=== PATIENT | male | born 1995 | race Caucasian/White ===

== ENCOUNTER 2017-10-28 14:39 | Emergency (ER) | payer OTHER ==
[2017-10-28 14:43] VITALS: BP 111/56; PULSE 82; TEMP 97.8; BMI 23.3
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
== END 2017-10-28 15:40 | disposition home or self-care (01) ==
LOC: JERFT 14:39
PROC: 0CQ1XZZ Repair Lower Lip, External Approach (ICD-10-PCS; principal; 2017-10-28)
DX: S01.511A Laceration without foreign body of lip, initial encounter (principal); W50.0XXA Accidental hit or strike by another person, initial encounter; Y93.89 Activity, other specified; Y92.89 Other specified places as the place of occurrence of the external cause; Y99.8 Other external cause status
CPT/HCPCS: 99281-25

== ENCOUNTER 2022-05-12 11:48 | Emergency (ER) | payer OTHER ==
[2022-05-12 11:55] VITALS: TEMP 98.1; BMI 28.0
[2022-05-12] MEDS ORDERED: ACETAMINOPHEN 1000 MG/100 ML BAG IVPB ONE (12:24)
[2022-05-12] MEDS ORDERED: ACETAMINOPHEN INJECTION 100 ML IVPB ONE (12:41)
[2022-05-12 13:37] LABS: BASO % 0.7 % (0-2.0); EOS % 0.7 % (0-4.5); HEMATOCRIT 45.3 % (35.4-49); HEMOGLOBIN 15.1 GM/dL (11.7-16.9); LYMPH % 37.4 % (8-40); MCH 30.2 pg (25.7-33.7); MCHC 33.4 g/dl (32.0-35.9); MEAN CELL VOLUME 90.3 fl (80-96); MEAN PLT VOLUME 10.1 fl (7.5-11.1); MONO % 11.3 % (3.8-10.2); NEUT % 49.9 % (42.8-82.8); PLATELET COUNT 289 10^3/uL (134-434); RBC 5.02 M/mm3 (4.00-5.60); RDW 13.8 % (11.9-15.9); WHITE BLOOD COUNT 5.2 K/mm3 (4.0-10.0)
[2022-05-12 13:45] LABS: INR 1.04 (0.83-1.09)
[2022-05-12 13:47] LABS: ACTIVATED PTT 30.7 SECONDS (25.2-36.5)
[2022-05-12 13:57] LABS: CHLORIDE 107 mmol/L (98-107); SODIUM 138 mmol/L (136-145)
[2022-05-12 14:00] LABS: ALBUMIN 3.9 g/dl (3.4-5.0); BLOOD UREA NITROGEN 15.1 mg/dL (7-18); CO2 26 mmol/L (21-32); GLUCOSE,RANDOM 90 mg/dL (74-106)
[2022-05-12 14:03] LABS: CREATININE 1.2 mg/dL (0.55-1.3); SGOT/AST 75 U/L (15-37)
[2022-05-12 14:05] LABS: BILIRUBIN,TOTAL 1.1 mg/dL (0.2-1)
[2022-05-12 14:06] LABS: ALK PHOS 59 U/L (45-117)
[2022-05-12 14:24] LABS: ANION GAP 5 MMOL/L (8-16); SGPT/ALT 27 U/L (13-61)
[2022-05-12 16:06] LABS: BLOOD UREA NITROGEN 15.5 mg/dL (7-18); CALCIUM 8.8 mg/dL (8.5-10.1)
[2022-05-12 16:56] VITALS: BP 130/68; PULSE 56; RESP 16
[2022-05-12] MEDS ORDERED: KETOROLAC TROMETHAMINE 30 MG/1 ML VIAL IVPUSH ONE (17:22)
[2022-05-12] MEDS ORDERED: KETOROLAC TROMETHAMINE 30 MG/1 ML VIAL ONE (17:34)
== END 2022-05-12 17:43 | disposition home or self-care (01) ==
LOC: JER 11:48
PROC: 3E033GC Introduction of Other Therapeutic Substance into Peripheral Vein, Percutaneous Approach (ICD-10-PCS; principal; 2022-05-12)
DX: R10.11 Right upper quadrant pain (principal)
CPT/HCPCS: 36415; 74177-TC; 76604; 76705-TC; 76775-TC; 80048; 80053; 85025; 85610; 85730; 93005; 93010; 93308; 99285-25; Q9967